=== PATIENT | female | born 2000 | race Caucasian/White ===

== ENCOUNTER 2018-03-09 10:59 | Emergency (ER) | payer MEDICAID ==
[2018-03-09 11:07] VITALS: BP 146/95
[2018-03-09 12:19] LABS: ABSOLUTE EOSINOPHILS # (AUTO) 0.1 10^3/uL (0.0-0.6); ABSOLUTE LYMPHOCYTES (AUTO) 1.5 10^3/uL (0.5-4.7); ABSOLUTE MONOCYTES (AUTO) 0.4 10^3/uL (0.1-1.4); ABSOLUTE NEUT (AUTO) 4.9 10^3/uL (1.7-8.2); BASOPHILS % (AUTO) 0.3 % (0-2); EOSINOPHILS % (AUTO) 0.7 % (0-6); HEMOGLOBIN 13.3 g/dL (12.0-15.5); LYMPHOCYTES % (AUTO) 21.6 % (13-45); MEAN CORPUSCULAR HEMOGLOBIN 28.5 pg (27.0-33.4); MEAN CORPUSCULAR HGB CONC 34.1 g/dL (32.0-36.0); MEAN CORPUSCULAR VOLUME 84 fl (80-97); MONOCYTES % (AUTO) 5.4 % (3-13); PLATELET COUNT 286 10^3/uL (150-450); RED BLOOD COUNT 4.67 10^6/uL (3.72-5.28); RED CELL DISTRIBUTION WIDTH 15.1 % (11.5-14.0); TOTAL CELLS COUNTED % (AUTO) 100 %; WHITE BLOOD COUNT 6.8 10^3/uL (4.0-10.5)
--- NOTE | 2018-03-09 12:24 | ER Document Report ---
ED GI/ - General Chief Complaint: Vaginal Bleeding Stated Complaint: VAGINAL BLEEDING Time Seen by Provider: 03/09/18 11:38 Information source: Patient Notes: Patient is a 18-year-old who recently had a child on 8-1/2 months ago who presents today with spotting for the last 3 days with passage this morning of a 3 inch diameter clot. She states some mild cramping over the last 2 days. Patient restarted her control medications 1 month ago. She is sexually active. She denies any fevers, dysuria, vomiting, or back pain. She currently is pain-free at this time. She has not had a positive test at home. TRAVEL OUTSIDE OF THE [place] IN LAST 30 DAYS: No - HPI Patient complains to provider of: Other - See above Onset: Other - See above Timing/Duration: Gone Quality of pain: No pain Severity at maximum: Mild Severity in ED: Mild Location: Other - See above Vaginal bleeding (Compared to normal period): Passing tissue - See above Sexual history: Active Associated symptoms: Other - See above Exacerbated by: Denies Relieved by: Denies Similar symptoms previously: No Recently seen / treated by doctor: No - Related Data Allergies/Adverse Reactions: No Known Allergies Allergy (Unverified 03/09/18 11:07) Past Medical History - General Last Menstrual Period: none d/t control - Social History Smoking Status: Never Smoker Chew tobacco use (# tins/day): No Frequency of alcohol use: None Drug Abuse: None Family History: Reviewed & Not Pertinent Patient has suicidal ideation: No Patient has homicidal ideation: No - Past Medical History Cardiac Medical History: Reports: Hx Hypertension Renal/ Medical History: Denies: Hx Peritoneal Dialysis Review of Systems - Review of Systems Constitutional: denies: Fever EENT: denies: Eye discharge, Nose discharge Respiratory: denies: Short of breath Gastrointestinal: denies: Vomiting Genitourinary: denies: Dysuria Musculoskeletal: denies: Leg swelling Skin: Other - no hives. denies: Rash Neurological/Psychological: Other - no slurred speech -: Yes All other systems reviewed and negative Physical Exam - Vital signs Vitals: Temp Pulse Resp BP Pulse Ox 98.5 F 98 15 146/95 H 100 03/09/18 11:05 03/09/18 11:05 03/09/18 11:05 03/09/18 11:05 03/09/18 11:05 Notes: Reviewed vital signs and nursing note as charted by RN. CONSTITUTIONAL: Alert and oriented and responds appropriately to questions. Well -appearing; well-nourished HEAD: Normocephalic; atraumatic EYES: Conjunctiva is not pale ENT: Normal nose; no rhinorrhea; moist mucous membranes; pharynx without lesions noted NECK: Supple without meningismus; non-tender; no cervical lymphadenopathy, no masses CARD: Regular rate and rhythm; no murmurs; symmetric distal pulses RESP: Normal chest excursion without splinting or tachypnea; breath sounds clear and equal bilaterally ABD/GI: Normal bowel sounds; non-distended; soft, non-tender to deep palpation of all 4 quadrants of the abdomen at this time BACK: The back appears normal and is non-tender to palpation EXT: Normal ROM in all joints; no edema SKIN: No acute lesions noted PSYCH: The patient's mood and manner are appropriate. Grooming and personal hygiene are appropriate. Course - Re-evaluation Re-evalutation: 03/09/18 12:27 Given the history and physical examination I will order a urine test as well as a pelvic examination. If the test is positive I will add on an hCG as well as a low gamma transvaginal ultrasound. Vital signs are stable and the patient currently has no pain. 03/09/18 12:43 Patient is not . I have canceled the quantitative hCG as well as the transvaginal ultrasound. Patient still has no pain. Patient does have signs and symptoms of a possible urinary tract infection. She is not breast-feeding. I will start the patient on Keflex and obtain a urine culture. I will perform a pelvic examination momentarily. 03/09/18 12:52 Urine analysis as recorded. I performed a pelvic examination I do not detect any obvious external lesions, internal lesions, with a closed cervix that is nontender without any adnexal tenderness or masses. Minimal blood in the vaginal vault. 03/09/18 13:50 No change in exam. Patient still without pain. Vital signs are stable. Patient does not want to wait for the chlamydia results. Patient will be discharged home with strict return precautions and follow-up with her primary provider in [place]. She has just dropped her fianc off in the . Strict return precautions have been explained. - Vital Signs Vital signs: Temp Pulse Resp BP Pulse Ox 98.5 F 98 15 146/95 H 100 03/09/18 11:05 03/09/18 11:05 03/09/18 11:05 03/09/18 11:05 03/09/18 11:05 - Laboratory Result Diagrams: 03/09/18 12:00 Laboratory results interpreted by me: 03/09/18 03/09/18 12:00 12:00 RDW 15.1 H Urine Blood LARGE H Ur Leukocyte Esterase TRACE H Discharge - Discharge Clinical Impression: Pelvic pain, Dysfunctional uterine bleeding Condition: Good Disposition: HOME, SELF-CARE Additional Instructions: Comeback immediately with any return of pain, lightheadedness, dizziness, fevers , vomiting, or any other acute problems. Please follow-up with the testing that we have performed here as well as the urine culture that we have provided. Prescriptions: Cephalexin Monohydrate [Keflex 500 mg Capsule] 500 mg PO Q8H 7 Days #21 capsule
[2018-03-09 12:27] LABS: APPEARANCE,URINE SLIGHTLY-CLOUDY; BILIRUBIN,URINE NEGATIVE (NEGATIVE); COLOR,URINE YELLOW; GLUCOSE, URINE NEGATIVE (NEGATIVE); KETONES,URINE NEGATIVE (NEGATIVE); LEUKOCYTE ESTERASE,URINE TRACE (NEGATIVE); NITRITE,URINE NEGATIVE (NEGATIVE); PROTEIN,URINE NEGATIVE (NEGATIVE); URINE SPECIFIC GRAVITY 1.013; UROBILINOGEN,URINE NEGATIVE mg/dL (<2.0)
[2018-03-09 13:28] LABS: T.VAGINALIS (WET MOUNT) NO TRICHOMONAS SEEN; WBCS (WET MOUNT) 1+ WBCS SEEN; YEAST (WET MOUNT) NO YEAST SEEN
[2018-03-09 13:29] LABS: BACTERIA (WET MOUNT) 3+ BACTERIA SEEN; RBCS (WET MOUNT) 4+ RBCS SEEN
[2018-03-09] MEDS ORDERED: CEPHALEXIN 500 MG CAPSULE PO ONE (13:40)
[2018-03-09 14:56] LABS: CHLAM PCR NOT DETECTED (NOT DETECT); GON PCR NOT DETECTED (NOT DETECT)
== END 2018-03-09 14:01 | disposition left against medical advice (07) ==
LOC: ER 10:59
DX: N93.8 Other specified abnormal uterine and vaginal bleeding (principal); R10.2 Pelvic and perineal pain; I10 Essential (primary) hypertension
CPT/HCPCS: 36415; 81001; 81025; 84702; 85025; 87086; 87210; 87491; 87591; 99284